=== PATIENT | female | born 1995 | race Caucasian/White ===

== ENCOUNTER → 2019-08-18 | Outpatient (CLI) | payer BC ==
--- NOTE | 2019-08-18 17:26 | RAD ---
RIBS LEFT AND PA CHEST DATE: 08/18/2019 12:00 AM INDICATION: Left rib pain COMPARISON: None available. FINDINGS: Chest: Heart size is within normal limits. No focal consolidations are seen. No evidence for pulmonary edema, pleural effusion, or pneumothorax. Bones: No radiographic evidence for a displaced, left-sided rib fracture is seen. IMPRESSION: No radiographic evidence for left-sided rib fracture. Electronically signed by: Jose L Henry MD (08/18/2019 5:23 PM) [id number]
== END | disposition home or self-care (01) ==
LOC: DXRAD 10:17
PROVIDERS: ATTEND Family Medicine
DX: R07.81 Pleurodynia (principal)
CPT/HCPCS: 71101